=== PATIENT | female | born 1965 | race African-American/Black ===

== ENCOUNTER 2018-04-20 08:15 | Emergency (ER) | payer OTHER ==
[~2018-04-20] VITALS: Ht 160 cm; Wt 77.1 kg
[~2018-04-20 08:15] MED LIST: FEOSOL45 MG PO; NORVASC5 M1 PO; POTASSIUM CHLO20 ME1 PO; PREDNISONE50 MG PO; PROAIR HFA0.09 MG/Ac PO; PROAIR HFA8.5 GM INH; TRAZODONE50 MG PO
--- NOTE | 2018-04-20 08:59 | ED PSYCHIATRIC COMPLAINT ---
History of Present Illness General Chief Complaint: ETOH/Drug Related Complaint Stated Complaint: REQUESTING ETOH DETOX Source: patient, family Exam Limitations: no limitations Vital Signs & Intake/Output Vital Signs & Intake/Output Vital Signs Date Time Temp Pulse Resp B/P B/P Pulse O2 O2 Flow FiO2 Mean Ox Delivery Rate 04/20 1420 96.2 102 18 133/101 04/20 1415 96.2 102 18 133/101 96 Room Air 04/20 1203 97.1 106 18 134/8 96 Room Air 04/20 1200 97.1 106 16 134/80 04/20 0819 96.5 126 20 148/110 96 Room Air Allergies Coded Allergies: fish derived (Severe, ANAPHYLAXIS 04/20/18) nut - unspecified (Severe, ANAPHYLAXIS 04/20/18) amoxicillin (Intermediate, HIVES 04/20/18) Reconcile Medications Albuterol Sulfate (Proair Hfa) 90 MCG HFA.AER.AD 2 PUF INH Q4-6 PRN PRN ASTHMA (Reported) Amlodipine Besylate (Norvasc) 5 MG TABLET 1 TAB PO DAILY HEART (Reported) Prednisone 10 MG TABLET 1 TAB PO DAILY STEROID (Reported) Ursodiol 500 MG TABLET 1 TAB PO BID UNKNOWN (Reported) Triage Note: PT TO ED WITH REQUESTING ETOH DETOX. DRINKS DAILY, NIPS AND VODKA. DENIES DRUG USE. DENIES SI/HI. HAS NOT TRIED DETOX IN THE PAST. PT TEARFUL, WORRIED ABOUT WORK. Triage Nurses Notes Reviewed? yes Onset: Abrupt Duration: day(s): Timing: recent history Severity: mild, moderate HPI: 53-year-old female comes into the emergency room for further evaluation of alcoholism. She's been a heavy drinker for 40 years. She drinks about a pint of vodka a day. Denies any history of DTs or seizure withdrawal. Her last drink was this morning around 5 AM. She denies any other drug use. She comes in seeking information for detox. Denies any other associated symptoms. (Billy Vargas) Past History Travel History Traveled to [place] past 21 day No Medical History Any Pertinent Medical History? see below for history Neurological: NONE EENT: NONE Cardiovascular: hypertension Respiratory: asthma Gastrointestinal: NONE Hepatic: NONE Renal: NONE Musculoskeletal: NONE Psychiatric: NONE Endocrine: NONE Blood Disorders: NONE Cancer(s): breast cancer INFRASTRUCTURE SOFTWARE ENGINEER/Reproductive: NONE Surgical History Surgical History: non-contributory Psychosocial History What is your primary language Lao Tobacco Use: Quit >30 days ago ETOH Use: alcoholic Illicit Drug Use: denies illicit drug use Family History Hx Contributory? No (Billy Vargas) Review of Systems Review of Systems Constitutional: Reports: no symptoms. EENTM: Reports: no symptoms. Respiratory: Reports: no symptoms. Cardiovascular: Reports: no symptoms. GI: Reports: no symptoms. Genitourinary: Reports: no symptoms. Musculoskeletal: Reports: no symptoms. Skin: Reports: no symptoms. Neurological/Psychological: Reports: no symptoms. Hematologic/Endocrine: Reports: no symptoms. Immunologic/Allergic: Reports: no symptoms. All Other Systems: Reviewed and Negative (Billy Vargas) Physical Exam Physical Exam General Appearance: well developed/nourished, mild distress Head: atraumatic Eyes: Bilateral: normal appearance. Ears, Nose, Throat: normal ENT inspection, hearing grossly normal Neck: normal inspection Respiratory: no respiratory distress Cardiovascular: regular rate/rhythm Extremities: normal range of motion Neurological/Psychiatric: awake, alert Behavoir/Eye Contact/Speech: cooperative Thoughts/Hallucinations: no apparent hallucination Skin: intact, normal color, warm/dry SAD PERSONS Done? patient not suicidal (Billy Vargas) Progress Differential Diagnosis: dementia, drug intoxication, drug overdose, drug withdrawal Plan of Care: Orders Procedure Date/time Status Regular Diet 04/20 L Active CIWA 04/20 821 Active URINE DRUGS OF ABUSE 04/20 821 Complete LIPASE 04/20 821 Complete ETHANOL 04/20 821 Complete COMPREHENSIVE METABOLIC PANEL 04/20 821 Complete CBC WITHOUT DIFFERENTIAL 04/20 821 Complete Laboratory Tests 04/20/18 0940: Anion Gap 15, Estimated GFR > 60, BUN/Creatinine Ratio 21.7, Glucose 114 H, Calcium 8.9, Total Bilirubin 1.5 H, AST 379 H, ALT 134 H, Alkaline Phosphatase 369 H, Total Protein 9.6 H, Albumin 4.4, Globulin 5.2 H, Albumin/ Globulin Ratio 0.8 L, Lipase 157, CBC w Diff NO MAN DIFF REQ, RBC 4.95, MCV 81.6, MCH 26.6 L, MCHC 32.6 L, RDW 19.5 H, MPV 8.4, Gran % 65.0, Lymphocytes % 31.3, Monocytes % 1.6 L, Eosinophils % 1.5, Basophils % 0.6, Absolute Granulocytes 3.8, Absolute Lymphocytes 1.8, Absolute Monocytes 0.1, Absolute Eosinophils 0.1, Absolute Basophils 0, Serum Alcohol 297.0 04/20/18 0938: Urine Opiates Screen < 100, Methadone Screen < 40, Barbiturate Screen < 60, Ur Phencyclidine Scrn < 6.00, Amphetamines Screen < 100, U Benzodiazepines Scrn < 85, Urine Cocaine Screen < 50, Urine Cannabis Screen < 5.00 Comments: 04/20/2018 5:39:26 PM Patient continues to score low CIWA scores. She is clinically sober. She reports that she does not want to stay here for alcohol detox. She was told to follow-up with her insurance sales executive in outpatient facility [facility]. Her family is going to drive her home. No history of seizure withdrawal. I told the patient she should stay here for further monitoring of her symptoms I discussed the results of the blood work with the patient including the elevated liver function tests. (Yordan CORBETT,Billy) Departure Departure Disposition: HOME OR SELF CARE Condition: Stable Clinical Impression Primary Impression: Alcoholism Referrals: Javad Melgar MD (PCP/Family) Additional Instructions: Follow-up with outpatient detox facility [facility]. Stop drinking alcohol. Return if any concerns worsening symptoms. You have decided to leave the emergency room. You have a ride from family member. Please go over all results of today's visit with your primary care doctor. Contact your primary care doctor to let them know you were here in the emergency room. There may be nonspecific findings which may not be related to your visit today here in the emergency room but may require further evaluation and chronic monitoring by your primary care doctor. If you had a laceration today the chance of foreign body always remains. You should follow-up with your primary care doctor for recheck in 3-5 days for a wound check. If you had an x-ray done there is a chance that a fracture could have been missed on initial read and you should follow-up with your primary care doctor for repeat x-rays if symptoms persist. If your blood pressure was elevated here in the emergency room please have rechecked by [facility] primary care doctor within the next 48. If you were prescribed a narcotic here in the emergency room or any type of controlled substances you're not allowed to drive while taking this medication or operate any type of heavy machinery. Narcotics can make you feel lightheaded dizziness nausea and can cause constipation. You may need to hot die picker a stool softener. Thank you for choosing [facility] emergency room. Please return to the emergency room immediately if you have any other concerns worsening of symptoms. Departure Forms: Customer Survey General Discharge Information (Billy Vargas) PA/MEDICAID ANALYST Co-Sign Statement Statement: ED Attending supervision documentation- [] I saw and evaluated the patient. I have also reviewed all the pertinent lab results and diagnostic results. I agree with the findings and the plan of care as documented in the PA's/MEDICAID ANALYST's documentation. [X] I have reviewed the ED Record and agree with the PA's/MEDICAID ANALYST's documentation. [] Additions or exceptions (if any) to the PAs/MEDICAID ANALYST's note and plan are summarized below: [] (Godwin VICTORIA,Toribio Monique)
[2018-04-20 09:48] LABS: ABSOLUTE BASOPHIL COUNT 0 /CUMM (0.0-0.2); ABSOLUTE EOSINOPHIL COUNT 0.1 /CUMM (0.0-0.7); ABSOLUTE GRANULOCYTE CT 3.8 /CUMM (1.4-6.5); ABSOLUTE LYMPH COUNT 1.8 /CUMM (1.2-3.4); ABSOLUTE MONOCYTE COUNT 0.1 /CUMM (0.10-0.60); BASOPHIL % 0.6 % (0.0-2.0); EOSINOPHIL % 1.5 % (0-5); MEAN CORPUSCULAR HGB 26.6 PG (27.0-31.0); MEAN CORPUSCULAR HGB CONC 32.6 G/DL (33.0-37.0); MEAN CORPUSCULAR VOLUME 81.6 FL (81.0-99.0); MEAN PLATELET VOLUME 8.4 FL (7.4-10.4); PLATELET COUNT 221 /CUMM (130-400); RBC DISTRIBUTION WIDTH 19.5 % (11.5-14.5); RED BLOOD CELL CT 4.95 /CUMM (4.20-5.40); WHITE BLOOD CELL COUNT 5.9 /CUMM (4.8-10.8)
[2018-04-20 09:51] LABS: HEMATOCRIT 40.4 % (37-47)
[2018-04-20] MEDS ORDERED: PREDNISONE10 M2 PO (11:10)
[2018-04-20] MEDS ORDERED: URSODIOL500 M1 PO (11:11)
[2018-04-20 14:20] VITALS: BP 133/101
== END 2018-04-20 14:27 ==
LOC: ERH 08:15
PROVIDERS: Physician Assistant Medical
DX: F10.20 Alcohol dependence, uncomplicated (principal)
CPT/HCPCS: 80307; G0480